=== PATIENT | female | born 1955 | race Caucasian/White ===

== ENCOUNTER 2017-03-16 01:46 | Emergency (ER) | payer OTHER ==
[~2017-03-16] VITALS: Ht 149.9 cm; Wt 53.2 kg
[~2017-03-16 01:46] MED LIST: BIOT1TAB13 PO; CHOL100045 PO; INFL100V IV; KRIL1CAP PO; PANT20TA2 PO
[2017-03-16 01:53] VITALS: BP 102/72; PULSE 78; RESP 16; O2SAT 98
[2017-03-16 03:01] LABS: BASOPHILS % (AUTO) 0.2 % (0-3); EOSINOPHILS % (AUTO) 0.9 % (0-5); MONOCYTES % (AUTO) 17.5 % (4-12); Mean Corpuscular Hemoglobin 31.3 pg (27.0-35.0); Mean Corpuscular Volume 87.2 fL (81-100); Platelet Count 277 bil/L (150-400)
--- NOTE | 2017-03-16 03:39 | ED.REPORT ---
HPI-Abd Pain F 40 and Over Date of Service Mar 16, 2017 ED Provider: Fletcher Davies MD Almaz Luo is a pleasant 61-year-old woman with history of ulcerative colitis who presents to the [facility] emergency department with complaint of diarrhea and vomiting for 3 days. She stated that she began to experience vomiting and diarrhea, vomiting has stopped since the first day, however she continues to have copious watery diarrhea. She states her grandson who may watch was recently treated with amoxicillin for an ear infection and has developed foul-smelling diarrhea, she believes that she has got what he has. She denies any blood, no recent travel, no undercooked fish or meat, other than her grandson no others in the family are affected. She has been having some lower extremity weakness that has been progressing with her diarrhea , some lightheadedness and dizziness, she has been able to drink fluids and some light food mainly toast, she has not taken any medications pepto-bismol, no Imodium. Her only medication is Remicade which has allowed her to be in remission for upwards of 8 years. She denies fever, chest pain, shortness of breath, rashes, headache, changes in vision, unilateral weakness, paresthesias. No dysuria. Nursing Notes Stated Complaint: NAUSEA/VOMITING Chief Complaint: Female Abdominal Pain Nursing Notes Reviewed: Yes Allergies: Coded Allergies: Corticosteroids (Glucocorticoids) (Verified Allergy, Severe, Crazy, ) mesalamine (Verified Allergy, Severe, 03/16/17) BLEEDING AND ABDOMINAL PAIN latex (Verified Allergy, Mild, 03/16/17) Uncoded Allergies: CORTICO SEROIDS (Allergy, Unknown, DISTONIC REACTION, 04/24/14) Scheduled Cholecalciferol (Vitamin D3) (Vitamin D) 1,000 Unit Capsule 2,000 UNIT PO DAILY Infliximab (Remicade) 10 Mg/Ml Sdv 300 MG IV every 8 weeks Krill/Om3/Dha/Epa/Om6/Lip/Astx (Krill Oil 1,000 mg Softgel) 1 Each Capsule 1 CAPSULE PO DAILY Ondansetron ODT (Ondansetron ODT) 4 Mg Tab.rapdis 4 MG PO TID Pantoprazole DR (Pantoprazole DR) 20 Mg Tablet.dr 20 MG PO DAILY Miscellaneous Medications Biotin (Biotin) 1 Mg Tablet 1 MG PO General Time Seen by MD: 03:02 Chief Complaint Diarrhea moderate Hx Obtained From: Patient, Spouse Sudden in Onset?: Yes Similar Sx Previous: No Past Medical History Past Medical History ulcerative colitis GERD Reports: GERD Past Surgical History C-sections 3 Reports: Smoking History Never Smoker Social History Lives with family Alcohol Use: Denies alcohol use Drug Use: Denies drug use Other Social History: College student Occupation Nurse at [employer] Ambulatory Status Independent Review of Systems Complete sys rev & neg: except as marked. Physical Exam General: Laying in bed, no apparent distress. HEENT: Normocephalic, atraumatic, EOMI grossly, because membranes moist, conjunctiva pink, neck supple without lymphadenopathy. Cardiovascular: Regular rate and rhythm, no clicks murmurs rubs, peripheral pulses 2/4 equal bilaterally Pulmonary: Clear to auscultation bilaterally, no W/R/R. Abdominal: Soft to palpation, hyperactive loud bowel sounds 4, no hepatosplenomegaly. Negative rebound. Abdomen is atraumatic, no ecchymosis, no rashes Extremities: No edema appreciated. No tenderness, asymmetry. No rashes appreciated Neuro: Neurologically grossly intact, strength is equal bilaterally upper and lower extremities. MSK: Able to move extremities on their own volition, strength 5 out of 5 equal bilaterally to upper and lower extremities. Vital Signs Vital Signs (First) Date Time Temp Pulse Resp B/P Pulse Ox O2 Delivery O2 Flow Rate FiO2 03/16/17 01:53 36.2 78 16 102/72 98 Room Air Initial VS: Reviewed, Vital signs normal Interpretation & Diagnostics Lab Results Interpretation Result Diagram: 03/16/17 0235 03/16/17 0235 Test 03/16/17 02:35 03/16/17 02:50 White Blood Count 8.5th/mm3 (3.8-10.1) Red Blood Count 4.83mil/mm3 (3.90-5.20) Hemoglobin 15.1g/dL (12.0-15.6) Hematocrit 42.1% (35.0-46.0) Mean Corpuscular Volume 87.2fL (81-100) Mean Corpuscular Hemoglobin 31.3pg (27.0-35.0) Mean Corpuscular Hemoglobin Concent 35.9% (32.0-37.0) Red Cell Distribution Width 12.3% (12.3-15.4) Platelet Count 277bil/L (150-400) Neutrophils (%) (Auto) 64.0% (40-74) Lymphocytes (%) (Auto) 17.3% (14-46) Monocytes (%) (Auto) 17.5% (4-12) Eosinophils (%) (Auto) 0.9% (0-5) Basophils (%) (Auto) 0.2% (0-3) Hold Purple Top Tube Received (Received) Hold Blue Top Tube Received (Received) Sodium Level 134mEq/L (134-144) Potassium Level 3.2mEq/L (3.5-5.2) Chloride Level 98mEq/L (97-108) Carbon Dioxide Level 19mmol/L (18-29) Blood Urea Nitrogen 11mg/dL (8-27) Creatinine 0.79mg/dL (0.57-1.00) Estimat Glomerular Filtration Rate 106mL/min (>59) Glucose Level 113mg/dL (60-99) Calcium Level 8.8mg/dL (8.5-10.1) Magnesium Level 2.0mg/dL (1.6-2.6) Total Bilirubin 0.4mg/dL (0.0-1.2) Aspartate Amino Transf (AST/SGOT) 37U/L (0-50) Alanine Aminotransferase (ALT/SGPT) 41U/L (0-32) Alkaline Phosphatase 55U/L (25-165) Total Protein 8.8g/dL (6.4-8.4) Albumin 4.5g/dL (3.4-5.0) Lipase 42U/L (13-60) Hold Red Top Tube Received (Received) Hold [place] Top Tube Received (Received) Hold [place] Top Tube Received (Received) Hold Urine Received (Received) Lab Results Interpretation: Mild hypokalemia Re-Eval/Medical Decision Med Decision/Clinical Course Patient was evaluated with high concern for past of ulcerative colitis, her abdomen is not acute, there is no blood in her stool, she does not have a fever , her CBC was unremarkable for signs of infection. Based on this is felt her symptoms are most likely of viral etiology, however given the history of her grandson developing diarrhea after taking an antibiotic there is also the possibility for Clostridium difficile. Stool sample is to be tested using PCR and pending results patient agrees to go home. Patient was instructed on red flag symptoms with return precautions. Patient states understanding and agreement to the interpretation, diagnosis, and plan. Counseled Regarding: Diagnosis, Lab results, Need for follow-up, When/why to return to ED Discharge & Departure Primary Impression: Gastroenteritis Disposition: Home Discharge Condition All VS Reviewed: Yes Condition: Stable Patient Instructions: Gastroenteritis (ED) Additional Instructions: Thank you for entrusting us with your care Evaluation today is consistent with gastroenteritis with a history of vomiting, diarrhea. Your lab work showed mildly low serum potassium, your given supplementation for this in the emergency department. Additional evaluations on your stool are going to take several hours to be run, he will be contacted with the results that there is any change in management. If you do not hear anything back within 24-48 hours please contact the emergency department at and ask if any results have returned. If you experience any worsening diarrhea, blood presents itself, you have worsening lightheadedness dizziness, confusion, you develop a rash, chest pain, shortness of breath or fever that is not relieved with Tylenol, please return to the emergency department, urgent care, or call 911 if necessary These continue to drink fluids, I recommend Gatorade, Powerade, chicken broth, or if you are able to eat I recommend simple foods such as rice, bread, bananas and yogurt, in conjunction with the previously mentioned fluids. Please follow-up with primary care physician regarding your emergency room visit. Referrals: Hamzah Mera MD (PCP) Attending Statement As attending of record for this patient, I conducted an independent history and physical exam, and I concur with the documentation per the resident note above, and as amended. copies to: Hamzah Mera MD, Noah M DO Mar 16, 2017 03:39 Fletcher Davies MD Mar 16, 2017 07:35
[2017-03-16] MEDS ORDERED: Potassium Chloride 20 mEq SR Tablet PO ONE (03:50)
[2017-03-16] MEDS ORDERED: Ondansetron 2 mg/mL 2 mL Inj IVPUSH ONE (05:40)
[2017-03-16] MEDS ORDERED: ONDA4TAB12 PO (05:42)
[2017-03-16 05:55] VITALS: BP 97/52; PULSE 77; RESP 16; O2SAT 97
== END 2017-03-16 05:55 ==
LOC: SED 01:46
DX: K52.9 Noninfective gastroenteritis and colitis, unspecified (principal); K21.9 Gastro-esophageal reflux disease without esophagitis; Z88.8 Allergy status to other drugs, medicaments and biological substances; Z91.040 Latex allergy status
CPT/HCPCS: 36415; 80053; 83690; 83735; 85025; 87015; 87209; 87507; 96361; 96374; 99285; J2405